=== PATIENT | male | born 1990 | race Two or more races ===

== ENCOUNTER 2019-05-30 20:07 | Emergency (ER) | payer OTHER ==
[~2019-05-30] VITALS: Ht 177.8 cm; Wt 83.9 kg
--- NOTE | 2019-05-30 20:19 | NUR ---
PT RECEIVED AMBULATORY WITH STABLE GAIT FROM HOME, C/O RECURRING CYST ON R GROIN X 1YEAR ALSO WITH CONCERN OF RECHECK ON PILONIDAL CYST (POPPED LAST WEEK) PT ABLE TO SPEAK CLEARLY AND COMPLETE SENTENCES. DENIES FEVERS/CHILLS/HEADACHES/SOB, DENIES NVD PT NAD, DENIES CHANGES IN B/B FUNCTION MD AT BEDSIDE FOR HX AND PHYSICAL
[2019-05-30] MEDS ORDERED: LIDOCAINE 1%-EPI 1:100,000 20 ML VIAL TP ONE (21:00)
--- NOTE | 2019-05-30 22:14 | NUR ---
Patient discharged to home in stable conditon. Written and verbal after care instructions given. Patient verbalizes understanding of instructions. Pt ambulated out of ER with steady gait, no acute signs of distress, VSS, all belongings taken.
[2019-05-30 22:16] VITALS: BP 114/69
== END 2019-05-30 22:17 | disposition home or self-care (01) ==
LOC: ER 20:10
DX: L02.415 Cutaneous abscess of right lower limb (principal); L05.91 Pilonidal cyst without abscess
CPT/HCPCS: 10060; 99283; J3490; A4663